=== PATIENT | female | born 1960 | race Caucasian/White ===

== ENCOUNTER → 2017-08-13 | Outpatient (CLI) | payer OTHER ==
[~2017-08-13] MED LIST: AMOCLA875 PO; ASPI325 PO; ATEN25 PO; CITA20 PO; ERGO50000 PO; FAMO20 PO; FEXO180 PO; HYDACE5 PO; LORA.5 PO; MEGA RED PO; MELA3 PO; PROM25 PO; VAGIFEM PO; ZOLP6.25 PO
[2017-08-15 12:17] LABS: HPV Genotype 16 Not Detected (NOTDET); HPV Genotype 18 Not Detected (NOTDET)
[2017-08-21 12:37] LABS: HPV High Risk Other Not Detected (NOTDET)
== END ==
LOC: LAB SRC 15:39
PROVIDERS: Nurse Practitioner Family
DX: Z01.419 Encounter for gynecological examination (general) (routine) without abnormal findings (principal)
CPT/HCPCS: 87624; G0123

== ENCOUNTER → 2019-04-02 | Outpatient (CLI) | payer OTHER ==
[2019-04-03 15:07] LABS: HPV 16 Negative (Negative); HPV 18 Negative (Negative); HPV OTHER HR TYPES Negative (Negative)
== END | disposition home or self-care (01) ==
LOC: LAB 11:26 → LAB SHORT 11:26
PROVIDERS: Nurse Practitioner Women's Health
DX: Z12.72 Encounter for screening for malignant neoplasm of vagina (principal); Z87.42 Personal history of other diseases of the female genital tract
CPT/HCPCS: 87624; G0123

== ENCOUNTER → 2019-08-15 | Outpatient (CLI) | payer OTHER | END | disposition home or self-care (01) | LOC: LAB EV 15:37 → LAB FUT 08-11 10:20 | DX: G47.00 Insomnia, unspecified (principal); R10.9 Unspecified abdominal pain | CPT/HCPCS: 87338 ==

== ENCOUNTER 2020-06-18 00:38 | Day surgery (SDC) | payer OTHER ==
[~2020-06-18 00:38] MED LIST changes: +AMLO5 PO; +Aspir 8181 MG PO; +Estrace Vagin42.5 GM TOP; +LOSA25 PO; +Nortriptyline H50 MG PO; +Vistaril25 MG PO
== END 2020-06-18 10:15 | disposition home or self-care (01) ==
LOC: ATC 00:38
DX: C50.412 Malignant neoplasm of upper-outer quadrant of left female breast (principal); Z17.0 Estrogen receptor positive status [ER+]; I10 Essential (primary) hypertension; K21.9 Gastro-esophageal reflux disease without esophagitis; C77.9 Secondary and unspecified malignant neoplasm of lymph node, unspecified; I45.6 Pre-excitation syndrome; Z79.899 Other long term (current) drug therapy
CPT/HCPCS: Q5110

== ENCOUNTER 2021-06-07 09:49 | Day surgery (SDC) | payer OTHER ==
[~2021-06-07] VITALS: Ht 149.9 cm; Wt 63.7 kg
[2021-06-07] MEDS ORDERED: GABA300 (11:19)
[2021-06-07] MEDS ORDERED: Doxepin HCl10 MG PO (11:20)
[2021-06-07] MEDS ORDERED: BUSPIRONE HCL7.5 M1 PO (11:20)
[2021-06-07] MEDS ORDERED: OMEP20ER PO (11:21)
[2021-06-07] MEDS ORDERED: LETR2.5 PO (11:21)
--- NOTE | 2021-06-07 11:23 | NUR ---
Ambulatory in Day Surgery History, Chart, Medications and Allergies reviewed before start of procedure. Lungs clear T/O to Auscultation. Patient confirms NPO status and agrees with scheduled surgery. Pre-Op teaching done. Pt verbalizes understanding. Patient States Post-Procedure ride home has been arranged.
--- NOTE | 2021-06-07 11:45 | NUR ---
06/07/21 1145 ROBSON ROTHMAN History, Chart, Medications and Allergies reviewed before start of procedure. Patient confirms NPO status and agrees with scheduled surgery. 3-LEAD EKG REVIEWED WITH PHYSICIAN PRIOR TO START OF PROCEDURE. MONITOR INTACT WITH CONTINUOUS PULSE OXIMETRY AND INTERMITTENT BP. PATIENT DETERMINED TO BE ASA APPROPRIATE FOR PROPOFOL SEDATION PRIOR TO START OF PROCEDURE BY DR. PANCHAL. O2 VIA N/C INTACT THROUGHOUT SEDATION/PROCEDURE.
--- NOTE | 2021-06-07 13:37 | NUR ---
Patient up to Ambulate independently. Gait steady. Discharge instructions reviewed with patient. Patient verbalizes understanding. Copy given to patient to take home. Discharged via wheelchair to private car for ride home.
== END 2021-06-07 13:35 | disposition home or self-care (01) ==
LOC: ORSCMMR 09:49 → ORD 11:30 → ORSCMMR 11:30
PROVIDERS: Surgery
PROC: 0DJD8ZZ Inspection of Lower Intestinal Tract, Via Natural or Artificial Opening Endoscopic (ICD-10-PCS; principal; 2021-06-07 11:30)
DX: Z12.11 Encounter for screening for malignant neoplasm of colon (principal); I10 Essential (primary) hypertension; F41.8 Other specified anxiety disorders; Z79.82 Long term (current) use of aspirin; Z79.899 Other long term (current) drug therapy
CPT/HCPCS: J2704; J7120